=== PATIENT | female | born 1995 | race Caucasian/White ===

== ENCOUNTER 2017-11-01 10:04 | Inpatient (IN) | payer OTHER ==
[2017-11-01] MEDS: LACTATED RINGER'S 1000 ML IV (10:31)
[2017-11-01] MEDS ORDERED: miSOPROStol 25 MCG 1/4 TAB (S0191) As Ordered (10:54)
[2017-11-01 11:00] LABS: HEMATOCRIT 36.1 % (36.0-47.0); MEAN CORPUSCULAR HEMOGLOBIN 29.2 pg (27.0-33.0); MEAN CORPUSCULAR HGB CONC 33.2 g/dl (32.0-36.5); MEAN CORPUSCULAR VOLUME 87.8 fl (80.0-96.0); PLATELET COUNT, AUTOMATED 194 10^3/uL (150-450); RED BLOOD COUNT 4.11 10^6/uL (4.00-5.40); RED CELL DISTRIBUTION WIDTH 14.1 % (11.5-14.5); WHITE BLOOD COUNT 10.7 10^3/uL (4.0-10.0)
[2017-11-01] MEDS: miSOPROStol 25 MCG 1/4 TAB (S0191) PV (11:00)
[2017-11-01] MEDS: LR 1,000 ML IV ×2 (12:28→20:57)
[2017-11-01] MEDS: OXYTOCIN DRIP 30 UNITS in APPROPRIATE DILUENT 1 EA IV (15:33)
[2017-11-01] MEDS ORDERED: FENTANYL 2MCG/ML ROPIVACAINE 0.2% IN 0.9% NACL 200ML IVBAG As Ordered (22:41)
[2017-11-02] MEDS ORDERED: LACTATED RINGER'S 1000 ML IV (00:22)
[2017-11-02] MEDS ORDERED: NALOXONE INJ 0.4 MG/1 ML VIAL (J2310) IV (00:22)
[2017-11-02] MEDS ORDERED: ONDANSETRON 4MG/2ML VIAL (J2405) IV (00:22)
[2017-11-02] MEDS ORDERED: EPIDURAL/PCA KEYS XX (00:22)
[2017-11-02] MEDS ORDERED: REFRIGERATOR IV KEYS XX (00:22)
[2017-11-02] MEDS ORDERED: ePHEDrine SULFATE 25 MG/5 ML(5MG/ML) SYRINGE IV (00:22)
[2017-11-02] MEDS ORDERED: diphenhydrAMINE INJ 50MG/ML VIAL (J1200) IV (00:22)
[2017-11-02] MEDS ORDERED: EPIDURAL COMMENT XX (00:22)
[2017-11-02] MEDS ORDERED: FENTANYL/ROPIVACAINE/NACL BAG 200 ML EPIDURAL (00:22)
[2017-11-02] MEDS ORDERED: OXYTOCIN 30 UNITS IN 0.9% NaCl 500ML IV BAG (J2590) As Ordered (03:19)
[2017-11-02] MEDS ORDERED: METHYLERGONOVINE MALEATE 0.2 MG/ML VIAL (J2210) As Ordered (03:20)
[2017-11-02] MEDS: miSOPROStol 200 MCG TAB (S0191) PR (04:45)
[2017-11-02] MEDS: METHYLERGONOVINE MALEATE 0.2 MG/ML VIAL (J2210) IM (04:45)
[2017-11-02] MEDS: LR 1,000 ML IV (04:58)
[2017-11-02] MEDS: CLINDAMYCIN 900 MG in APPROPRIATE DILUENT 1 EA IV (04:59)
[2017-11-02] MEDS: OXYTOCIN DRIP 30 UNITS in APPROPRIATE DILUENT 1 EA IV (04:59)
[2017-11-02 05:12] LABS: HEMATOCRIT 31.8 % (36.0-47.0); HEMOGLOBIN 10.6 g/dl (12.0-15.5); MEAN CORPUSCULAR HEMOGLOBIN 29.7 pg (27.0-33.0); MEAN CORPUSCULAR HGB CONC 33.3 g/dl (32.0-36.5); MEAN CORPUSCULAR VOLUME 89.1 fl (80.0-96.0); PLATELET COUNT, AUTOMATED 175 10^3/uL (150-450); RED BLOOD COUNT 3.57 10^6/uL (4.00-5.40); RED CELL DISTRIBUTION WIDTH 14.1 % (11.5-14.5)
[2017-11-02] MEDS: GENTAMICIN 140 MG in D5W 50 ML IV (06:00)
[2017-11-02] MEDS: ACETAMINOPHEN 500 MG TAB PO ×2 (06:19→14:15)
[2017-11-02] MEDS: METHYLERGONOVINE MALEATE 0.2 MG TAB PO ×4 (09:50→21:27)
[2017-11-02] MEDS: PRENATAL VITAMINS CHEWABLE TABLET PO (09:50)
[2017-11-02] MEDS: DIBUCAINE 1% OINTMENT 30GM TOP (09:50)
[2017-11-02] MEDS: IBUPROFEN 800 MG TAB PO ×2 (09:51→17:52)
[2017-11-02] MEDS: DOCUSATE SODIUM 100 MG CAP PO ×2 (14:14→21:27)
[2017-11-02 16:11] LABS: HEMATOCRIT 31.6 % (36.0-47.0); HEMOGLOBIN 10.6 g/dl (12.0-15.5); MEAN CORPUSCULAR HEMOGLOBIN 29.6 pg (27.0-33.0); MEAN CORPUSCULAR HGB CONC 33.5 g/dl (32.0-36.5); MEAN CORPUSCULAR VOLUME 88.3 fl (80.0-96.0); PLATELET COUNT, AUTOMATED 195 10^3/uL (150-450); RED BLOOD COUNT 3.58 10^6/uL (4.00-5.40); RED CELL DISTRIBUTION WIDTH 14.4 % (11.5-14.5); WHITE BLOOD COUNT 20.2 10^3/uL (4.0-10.0)
[2017-11-02] MEDS: MEASLES,MUMPS,RUBELLA VACCINE INJ (MMR-II) (90707) SC (16:51)
[2017-11-02] MEDS: RHOGAM 300 MCG (1500 IU) INJ (J2790) IM (16:51)
[2017-11-03] MEDS: ACETAMINOPHEN 500 MG TAB PO ×2 (01:23→14:07)
[2017-11-03] MEDS: DOCUSATE SODIUM 100 MG CAP PO ×2 (08:32→21:00)
[2017-11-03] MEDS: PRENATAL VITAMINS CHEWABLE TABLET PO (08:33)
[2017-11-03] MEDS: IBUPROFEN 800 MG TAB PO ×2 (08:33→17:57)
[2017-11-04] MEDS: IBUPROFEN 800 MG TAB PO (05:30)
[2017-11-04] MEDS: DOCUSATE SODIUM 100 MG CAP PO (09:00)
[2017-11-04] MEDS: PRENATAL VITAMINS CHEWABLE TABLET PO (09:00)
== END 2017-11-04 12:30 | disposition home or self-care (01) | DRG 774 ==
LOC: M LDO 10:04 → M OBS 11-02 16:12 → M LDI 10:39
PROVIDERS: Obstetrics & Gynecology
PROC: 3E033VJ Introduction of Other Hormone into Peripheral Vein, Percutaneous Approach (ICD-10-PCS; 2017-11-01)
PROC: 10E0XZZ Delivery of Products of Conception, External Approach (ICD-10-PCS; principal; 2017-11-02)
PROC: 0DQR0ZZ Repair Anal Sphincter, Open Approach (ICD-10-PCS; 2017-11-02)
DX: O41.03X0 Oligohydramnios, third trimester, not applicable or unspecified (principal); O72.1 Other immediate postpartum hemorrhage; Z37.0 Single live birth; O48.0 Post-term pregnancy; Z3A.40 40 weeks gestation of pregnancy; K21.9 Gastro-esophageal reflux disease without esophagitis; Z79.899 Other long term (current) drug therapy; O26.03 Excessive weight gain in pregnancy, third trimester; Z88.0 Allergy status to penicillin; Z88.8 Allergy status to other drugs, medicaments and biological substances; O99.62 Diseases of the digestive system complicating childbirth

== ENCOUNTER 2018-09-19 13:08 | Emergency (ER) | payer OTHER ==
[~2018-09-19] VITALS: Ht 160 cm; Wt 81.8 kg
[~2018-09-19 13:08] MED LIST: COLA100C5 PO; IBUP80TA PO; NUPE1OIN2 TOP; PRENTAB9 PO; TYLE500T78 PO
[2018-09-19] MEDS ORDERED: PHENYLEPHRINE 0.5% NASAL SPRAY 15 ML ONE (14:00)
[2018-09-19 14:07] LABS: BASO % 0.3 % (0.0-1.0); EOS # 0.1 10^3/uL (0.0-0.50); EOS % 0.6 % (0.0-3.0); LYMPH # 2.1 10^3/uL (1.5-6.5); LYMPH % 22.7 % (24.0-44.0); MEAN CORPUSCULAR HGB CONC 31.6 g/dl (32.0-36.5); MEAN CORPUSCULAR VOLUME 82.3 fl (80.0-96.0); MONO # 0.5 10^3/uL (0.0-0.8); MONO % 5.7 % (0.0-5.0); NEUTROPHILS # 6.6 10^3/uL (1.8-7.7); NEUTROPHILS % 70.5 % (36.0-66.0); PLATELET COUNT, AUTOMATED 272 10^3/uL (150-450); RED BLOOD COUNT 4.62 10^6/uL (4.00-5.40); WHITE BLOOD COUNT 9.3 10^3/uL (4.0-10.0)
[2018-09-19 14:29] LABS: HCG, SERUM QUALITATIVE NEGATIVE (NEGATIVE)
[2018-09-19 14:53] VITALS: BP 115/70
== END 2018-09-19 14:55 | disposition home or self-care (01) ==
LOC: M ED 13:08
DX: R04.0 Epistaxis (principal); Z88.0 Allergy status to penicillin; Z88.8 Allergy status to other drugs, medicaments and biological substances

== ENCOUNTER → 2019-03-20 | Outpatient (CLI) | payer OTHER ==
[2019-03-20 13:36] LABS: BASO % 0.4 % (0.0-1.0); EOS % 0.2 % (0.0-3.0); HEMOGLOBIN 11.8 g/dl (12.0-15.5); LYMPH # 2.2 10^3/uL (1.5-5.0); LYMPH % 23.4 % (24.0-44.0); MEAN CORPUSCULAR HEMOGLOBIN 28.9 pg (27.0-33.0); MEAN CORPUSCULAR HGB CONC 33.7 g/dl (32.0-36.5); MEAN CORPUSCULAR VOLUME 85.8 fl (80.0-96.0); MONO # 0.4 10^3/uL (0.0-0.8); MONO % 4.7 % (0.0-5.0); NEUTROPHILS # 6.7 10^3/uL (1.5-8.5); PLATELET COUNT, AUTOMATED 237 10^3/uL (150-450); RED BLOOD COUNT 4.08 10^6/uL (4.00-5.40); WHITE BLOOD COUNT 9.4 10^3/uL (4.0-10.0)
[2019-03-20 14:41] LABS: HEPATITIS C VIRUS ABY INDEX 0.1 INDEX (<0.8); HIV 1&2 SCREEN CENTAUR NEGATIVE (NEGATIVE); RUBELLA IgG QUALITATIVE IMMUNE (IMMUNE)
[2019-03-20 15:12] LABS: CHLAMYDIA DNA AMPLIFICATION NEGATIVE (NEGATIVE); GC DNA AMPLIFICATION NEGATIVE (NEGATIVE)
--- NOTE | 2019-03-20 17:00 | REP ---
Obstetric sonography: History: Supervision of for anatomy. Findings: Scanning through the gravid uterus demonstrates a viable single intrauterine gestation in a breech lie. motion is observed and heart rate is recorded at 161 beats per minute. A posterior placenta is seen grade 0 without evidence of previa. Amniotic fluid is subjectively normal. Closed cervical length is 3.5 cm measured transabdominally. No extrauterine abnormalities observed. Exam quality is inhibited some degree by position. The cord insertion on the placenta is somewhat eccentric. No anomaly is seen. lung, four-chamber heart and outflow tract cardiac visualization is less than optimal due to position. The following additional anatomic structures are identified today and felt to be sonographically unremarkable: cranium, choroid plexus, cavum, cerebellum and posterior fossa, face and profile, diaphragm, left-sided stomach, abdominal wall cord insertion, three-vessel umbilical cord, kidneys and bladder, spine, upper and lower extremities. Biometry chart: BPD 3.9 cm = 18 weeks 0 days HC 15.3 cm = 18 weeks 2 days AC 12.2 cm = 18 weeks 1 day FL 2.7 cm = 18 weeks 0 days HL 2.6 cm = 18 weeks 2 days HC/AC ratio normal 1.22. Cephalic index normal 0.70. Estimated weight 224 grams, 0 pounds 7 ounces, 51st percentile for 18 weeks 0 days. Impression: Viable single intrauterine gestation 18 weeks 1 day by today's composite sonographic criteria. ROZ by today's sonography August 20, 2019. Less than optimal visualization of the heart and lungs. Breech position. Electronically Signed by Lalo Valero MD 03/20/2019 05:08 P
== END ==
LOC: M RAD 11:18
PROVIDERS: ATTEND Advanced Practice Midwife
DX: O32.1XX0 Maternal care for breech presentation, not applicable or unspecified (principal); Z36.89 Encounter for other specified antenatal screening; Z3A.18 18 weeks gestation of pregnancy

== ENCOUNTER → 2019-05-06 | Outpatient (CLI) | payer OTHER ==
--- NOTE | 2019-05-06 14:10 | REP ---
OB ULTRASOUND: Real-time sonographic evaluation of the gravid uterus performed. There is single living intrauterine gestation, estimated gestational age 24 weeks 5 days, EDC 08/21/2019. Today's measurements indicate appropriate growth. Biometry and Growth: BPD 59 mm = 24 weeks 2 days, 41st percentile HC 229 mm = 25 weeks 0 days, 56th percentile AC 198 mm = 24 weeks 3 days, 45th percentile FL 46 mm = 25 weeks 1 day, 59th percentile HC/AC ratio 1.16 within normal range. Estimated weight 731 grams 45th percentile. SEEN/GROSSLY UNREMARKABLE Lateral ventricles Yes Posterior fossa Yes Upper lip No Four-chamber heart No LVOT Yes RVOT No Stomach Yes Cord insertion Yes Three vessel cord Yes Kidneys Yes Bladder Yes Spine Yes Cervical length: Closed and measures 2.9 cm in length. heart rate: 141 beats per minute. position: Vertex. Placenta: Posterior and grade 0 with no previa or abruption. Amniotic fluid: Within normal limits. Electronically Signed by Ricardo Betancur MD 05/07/2019 11:22 A
== END ==
LOC: M RAD 12:25
PROVIDERS: ATTEND Advanced Practice Midwife
DX: Z34.82 Encounter for supervision of other normal pregnancy, second trimester (principal); Z36.2 Encounter for other antenatal screening follow-up; Z3A.24 24 weeks gestation of pregnancy

== ENCOUNTER → 2019-05-23 | Outpatient (CLI) | payer OTHER ==
[2019-05-23 09:39] LABS: HEMATOCRIT 36.5 % (36.0-47.0); HEMOGLOBIN 11.4 g/dl (12.0-15.5); MEAN CORPUSCULAR HEMOGLOBIN 28.7 pg (27.0-33.0); MEAN CORPUSCULAR HGB CONC 31.2 g/dl (32.0-36.5); MEAN CORPUSCULAR VOLUME 91.9 fl (80.0-96.0); PLATELET COUNT, AUTOMATED 211 10^3/uL (150-450); RED BLOOD COUNT 3.97 10^6/uL (4.00-5.40); WHITE BLOOD COUNT 8.7 10^3/uL (4.0-10.0)
== END ==
LOC: M LAB 08:11
PROVIDERS: ATTEND Advanced Practice Midwife
DX: Z34.82 Encounter for supervision of other normal pregnancy, second trimester (principal); Z36.89 Encounter for other specified antenatal screening

== ENCOUNTER → 2019-06-04 | Outpatient (CLI) | payer OTHER ==
--- NOTE | 2019-06-04 10:34 | REP ---
Obstetric sonography: History: Supervision of followup anatomy. Findings: Scanning through the gravid uterus demonstrates a viable single intrauterine gestation in a cephalic lie. motion is observed and heart rate is recorded at 176 beats per minute. A posterior grade 1 placenta is seen without evidence of previa or abruption. Amniotic fluid is subjectively normal. Closed cervical length measures 3.1 cm, viewed transabdominally. There has been appropriate interval growth. No anomaly is seen. The following anatomic structures are identified today and felt to be unremarkable: cranium, choroid plexus, cavum, lungs, four-chamber heart, left and right ventricular outflow tract views, diaphragm, left-sided stomach, abdominal wall cord insertion, three-vessel cord, kidneys and bladder, spine, lower extremities. Biometry chart: BPD 7.6 cm = 30 weeks 2 days Head circumference 27.0 cm = 29 weeks 3 days Abdominal circumference 25.8 cm = 30 weeks 0 days Femur length 5.7 cm = 29 weeks 6 days Humeral length 5.1 cm = 29 weeks 5 days HC/AC ratio normal 1.04. Cephalic index normal 0.79. Estimated weight 1475 grams, 3 pounds 4 ounces, 66 percentile for 28 week 6 days. LANI normal 17.3 cm. S/D ratio in the umbilical cord artery by Doppler slightly low 2.07. Impression: Viable single intrauterine gestation at 29 weeks 6 days by today's composite criteria. Expected gestational age estimate based on prior sonography is 29 weeks 0 days. ROZ by prior sonography August 20, 2019. In conjunction with the prior study, anatomic survey is felt to be complete. Electronically Signed by Lalo Valero MD 06/04/2019 02:22 P
== END ==
LOC: M RAD 08:01
PROVIDERS: ATTEND Advanced Practice Midwife
DX: Z34.93 Encounter for supervision of normal pregnancy, unspecified, third trimester (principal); Z3A.29 29 weeks gestation of pregnancy